=== PATIENT | female | born 1995 | race Caucasian/White ===

== ENCOUNTER 2017-01-09 11:10 | Emergency (ER) | payer MEDICAID, OTHER ==
[~2017-01-09] VITALS: Ht 157.5 cm; Wt 58.1 kg
[2017-01-09 11:10] VITALS: BP 111/68; PULSE 80; RESP 18; TEMP 97.6; O2SAT 96
[2017-01-09] MEDS ORDERED: PARO20TA51 PO (11:20)
--- NOTE | 2017-01-09 11:40 | NUR ---
DR TADEO EVALUATING PT IN TRIAGE ROOM
[2017-01-09] MEDS ORDERED: DEXAMETHASONE SOD PHOSPHATE 10 MG/ML VIAL IM ONE (12:00)
--- NOTE | 2017-01-09 12:30 | NUR ---
PT. PLACED IN ROOM 3, BED DOWN SIDERAILS UP, REPORT RECEIVED FROM JEANMARIE YING
--- NOTE | 2017-01-09 12:35 | NUR ---
PT. TO THE ER AAOx4 C/O COUGH AND CONJESTION FOR PAST 2 WEEKS, STATES THAT SHE HAD SEEN A DOCTOR A WEEK AGO AND TOOK ANTIBIOTICS FOR 2 DAYS BUT MEDS DID NOT HELP, DENIES SOB, STATES NO HEADACHE, STATES NO N/V/D, DENIES ABDOMINAL PAIN.
--- NOTE | 2017-01-09 12:35 | NUR ---
DR. TADEO AT BEDSIDE EXAMINING THE PT.
[2017-01-09 13:15] VITALS: BP 121/72; PULSE 78; RESP 16; TEMP 98.6; O2SAT 99
--- NOTE | 2017-01-09 13:15 | NUR ---
Patient given written and verbal discharge instructions and verbalizes understanding. ER MD DR. TADEO discussed with patient the results and treatment provided. Patient in stable condition. ID arm band removed. Rx of AZITHROMYCIN IBUPROFEN PROMETHAZINE given. Patient educated on pain management and to follow up with PMD. Pain Scale 0/10 Opportunity for questions provided and answered.
== END 2017-01-09 13:15 | disposition home or self-care (01) ==
LOC: SED 11:10
DX: J40 Bronchitis, not specified as acute or chronic (principal); H92.01 Otalgia, right ear
CPT/HCPCS: 96372; 99283; J1100

== ENCOUNTER 2017-04-05 12:53 | Emergency (ER) | payer OTHER ==
[~2017-04-05] VITALS: Ht 157.5 cm; Wt 57.2 kg
[~2017-04-05 12:53] MED LIST: PARO20TA51 PO
[2017-04-05 13:05] VITALS: BP_SYST 102
[2017-04-05 13:53] LABS: BILIRUBIN,URINE 1+ (NEGATIVE); CLARITY/URINE HAZY (CLEAR); COLOR,URINE AMBER (YELLOW); GLUCOSE,URINE NEGATIVE (NEGATIVE); KETONES,URINE NEGATIVE (NEGATIVE); LEUKOCYTE ESTERASE ,URINE NEGATIVE (NEGATIVE); NITRITE, URINE NEGATIVE (NEGATIVE); PH,URINE 6.5 (5.0-8.0); PROTEIN URINE 1+ (NEGATIVE); UROBILINOGEN,URINE 0.2 (0.2-1.0)
[2017-04-05 13:54] LABS: BLOOD, URINE TRACE (NEGATIVE)
[2017-04-05 14:02] LABS: BACTERIA,URINE FEW /HPF (None Seen); MUCUS,URINE 2+ /LPF (None Seen); WBC,URINE 0-3 /HPF (0-3)
[2017-04-05 15:24] VITALS: BP_SYST 110
== END 2017-04-05 15:24 | disposition home or self-care (01) ==
LOC: SED 12:53
DX: J11.1 Influenza due to unidentified influenza virus with other respiratory manifestations (principal)
CPT/HCPCS: 81000-TC; 81025; 99283

== ENCOUNTER 2017-11-24 11:18 | Emergency (ER) | payer MEDICAID, OTHER ==
[~2017-11-24] VITALS: Ht 157.5 cm; Wt 59.0 kg
[2017-11-24 11:18] VITALS: BP_SYST 116
[2017-11-24] MEDS ORDERED: PREDNISONE 20 MG TABLET PO ONE (12:00)
[2017-11-24 12:15] VITALS: BP_SYST 115
== END 2017-11-24 12:15 | disposition home or self-care (01) ==
LOC: SED 11:18
DX: J11.1 Influenza due to unidentified influenza virus with other respiratory manifestations (principal)
CPT/HCPCS: 99283; J7512

== ENCOUNTER 2018-09-01 09:03 | Emergency (ER) | payer SELFPAY ==
[~2018-09-01] VITALS: Ht 157.5 cm; Wt 54.9 kg
[~2018-09-01 09:03] MED LIST changes: +PARO-63 PO; -PARO20TA51 PO
[2018-09-01 09:08] VITALS: BP_SYST 130
--- NOTE | 2018-09-01 09:12 | NUR ---
Pt placed to ER waiting room in stable condition. Denies c/o C/P, HR WNL. Dr. Velasco made aware.
--- NOTE | 2018-09-01 09:24 | NUR ---
Pt placed to ER bed 02, to gown, to cardiac rehabilitation specialist, report given to STEPAN Mack.
--- NOTE | 2018-09-01 09:24 | NUR ---
ER at bedside examining patient.
--- NOTE | 2018-09-01 09:30 | NUR ---
Pt presents to ER c/o "racing heart rate", nausea, diarrhea x 3 days. Pt reports hx of marijuana use, denies use today, denies chest pain. HR 77 when placed in ER bed 2. AOX4, ambulatory, no signs of distress, pt's skin dry, warm to touch.
--- NOTE | 2018-09-01 10:20 | NUR ---
Patient given written and verbal discharge instructions and verbalizes understanding. ER MD discussed with patient the results and treatment provided. Patient in stable condition. ID arm band removed. Rx of Xanax given. Patient educated on pain management and to follow up with PMD. Pain Scale 0/10. Opportunity for questions provided and answered. Medication side effect fact sheet provided.
== END 2018-09-01 10:20 | disposition home or self-care (01) ==
LOC: SED 09:03
DX: F41.9 Anxiety disorder, unspecified (principal); R11.0 Nausea; R19.7 Diarrhea, unspecified; F17.200 Nicotine dependence, unspecified, uncomplicated; R03.0 Elevated blood-pressure reading, without diagnosis of hypertension
CPT/HCPCS: 93005; 99283

== ENCOUNTER 2018-11-07 01:10 | Emergency (ER) | payer MEDICAID ==
[~2018-11-07] VITALS: Ht 157.5 cm; Wt 59.0 kg
[2018-11-07 01:15] VITALS: BP_SYST 109
--- NOTE | 2018-11-07 01:15 | NUR ---
Patient to ER bed 8 to gown for evaluation. Side rails up.
--- NOTE | 2018-11-07 01:20 | NUR ---
Pt c/o runny nose since yesterday and states she woke up this morning feeling like she was choking and having trouble breathing. Pt states she feels nauseous but denies vomiting and fever. No other injuries/complaints per patient or noted.
[2018-11-07] MEDS ORDERED: NACL 0.9% 1,000 ML IV ONE (01:37)
--- NOTE | 2018-11-07 01:37 | NUR ---
ER Dr. Carrizales at bedside examining patient.
[2018-11-07] MEDS ORDERED: ONDANSETRON HCL 4 MG/2 ML VIAL IVP ONE (01:45)
--- NOTE | 2018-11-07 01:49 | NUR ---
# 20 gauge angiocath placed to LAC. Use of asceptic technique. Opsite placed over site. Blood return noted. Blood for lab drawn from site. Flushed with 10 cc of normal saline. No evidence of infiltration noted. Patient tolerated well.
[2018-11-07] MEDS ORDERED: DIPHENHYDRAMINE INJ 50 MG/ML VIAL IVP ONE (02:00)
[2018-11-07 02:11] LABS: BASOPHILS # (AUTO) 0.1 K/uL (0.0-0.2); EOSINOPHILS # (AUTO) 0.3 K/uL (0.0-0.4); EOSINOPHILS % (AUTO) 3.6 % (0.0-4.0); HEMATOCRIT 41.1 % (36-48); HEMOGLOBIN 13.9 g/dL (12.0-16.0); LYMPHOCYTES # (AUTO) 3.2 K/uL (1.0-5.5); LYMPHOCYTES % (AUTO) 42.6 % (20.5-51.5); MEAN CORPUSCULAR HEMOGLOBIN 30 pg (27-31); MEAN CORPUSCULAR HGB CONC 34 % (32-36); MEAN CORPUSCULAR VOLUME 90 fL (79.0-98.0); MONOCYTES # (AUTO) 0.3 K/uL (0.0-1.0); NEUTROPHILS # (AUTO) 3.6 K/uL (1.8-7.7); NEUTROPHILS % (AUTO) 48.8 % (40.0-70.0); PLATELET COUNT (AUTO) 240 K/uL (130-430); RED BLOOD CELL COUNT(AUTO) 4.58 MIL/uL (4.2-6.2); RED CELL DISTRIBUTION WIDTH 12.1 % (9.0-15.0); WHITE BLOOD COUNT (AUTO) 7.5 K/uL (4.8-10.8)
[2018-11-07] MEDS ORDERED: FAMOTIDINE PF 20 MG/2 ML VIAL IVP ONE (02:15)
[2018-11-07 02:17] LABS: BILIRUBIN,URINE NEGATIVE (NEGATIVE); BLOOD, URINE NEGATIVE (NEGATIVE); CLARITY/URINE CLEAR (CLEAR); COLOR,URINE YELLOW (YELLOW); GLUCOSE,URINE NEGATIVE (NEGATIVE); KETONES,URINE NEGATIVE (NEGATIVE); LEUKOCYTE ESTERASE ,URINE NEGATIVE (NEGATIVE); NITRITE, URINE NEGATIVE (NEGATIVE); PROTEIN URINE NEGATIVE (NEGATIVE); UROBILINOGEN,URINE 0.2 (0.2-1.0)
[2018-11-07 02:29] LABS: CALCIUM 8.6 mg/dL (8.4-11.0); CREATININE 0.63 mg/dL (0.55-1.30); POTASSIUM 4.3 mmol/L (3.5-5.1)
[2018-11-07 02:33] LABS: ALBUMIN 3.7 g/dL (3.4-4.8); TOTAL BILIRUBIN 0.3 mg/dL (0.0-1.0)
--- NOTE | 2018-11-07 02:39 | NUR ---
Medications were given, pt tolerated well. No adverse reaction, will continue to monitor.
[2018-11-07 04:01] VITALS: BP_SYST 114
--- NOTE | 2018-11-07 04:01 | NUR ---
Patient given written and verbal discharge instructions and verbalizes understanding. ER MD discussed with patient the results and treatment provided. Patient in stable condition. ID arm band removed. IV catheter removed intact and dressing applied, no active bleeding. Rx of Zofran given. Patient educated on pain management and to follow up with PMD. Pain Scale 0. Opportunity for questions provided and answered. Medication side effect fact sheet provided.
== END 2018-11-07 04:01 | disposition home or self-care (01) ==
LOC: SED 01:10
DX: J06.9 Acute upper respiratory infection, unspecified (principal); R05 Cough; F17.210 Nicotine dependence, cigarettes, uncomplicated
CPT/HCPCS: 36415; 71045; 80053; 81003; 81025; 85025; 96374; 96375; 99284; J1200; J2405; J3490; J7030